=== PATIENT | female | born 1960 | race Caucasian/White ===

== ENCOUNTER 2022-03-02 07:25 | Emergency (ER) | payer SELFPAY ==
[2022-03-02] VITALS (9 sets, daily range): BP systolic 149–217; BP diastolic 79–114; PULSE 65–84; RESP 12–21; TEMP 36.8; O2SAT 97–99; BMI 52.7
--- NOTE | 2022-03-02 07:35 | EKG12_ITS ---
Test Reason : CHEST HEAVINESS Blood Pressure : / mmHG Vent. Rate : 082 BPM Atrial Rate : 082 BPM P-R Int : 206 ms QRS Dur : 094 ms QT Int : 384 ms P-R-T Axes : 029 -28 064 degrees QTc Int : 448 ms Normal sinus rhythm Normal ECG Confirmed by SUKHJINDER HAQ, JENNIFER ([id number]), editor house organ SANDHYA ROSALES ([id number]) on 03/06/2022 10:40:29 AM Referred By: EMMA Confirmed By:JENNIFER SLAUGHTER MD
--- NOTE | 2022-03-02 07:39 | ED.VIS.CHEST ---
HPI History of Present Illness Chief Complaint: Chest Pain Informant: patient Onset/Context/Timing Onset: Days Activity at onset: gradual Timing: Waxes and wanes Quality: Positive for Heaviness Location: Substernal Current Severity: Mild Maximum Severity: Mild Narrative Narrative: Patient presents secondary to chest heaviness. She states the past 3 days she has had a heavy sensation across her chest. This morning was slightly worse. She has noted some mild nausea and had diarrhea yesterday. No fever or chills. No vomiting or cough. She does have a strong family history of heart disease. She does note that she has not been to the doctor in quite some time. She does not take any medications on a regular basis. [facility] Medical History (Updated 03/02/22 @ 12:[address] Bhavya Patterson MD) Hiatal hernia Home Medications amlodipine 5 mg tablet 5 mg PO DAILY #30 tabs 03/02/22 [Rx Last Taken Unknown] Allergy/AdvReac Type Severity Reaction Status Date / Time Penicillins [PCN] AdvReac Chest Verified 03/02/22 07:26 tightness Surgical History Hx of cholecystectomy Social History Smoking Status: Never smoker ROS ROS ED Constitutional Constitutional ED: Denies chills or fever(s) Eyes Eyes: Denies change in vision or discharge from eye(s) ENT ENT ED: Denies discharge from eye(s), rhinorrhea or sore throat Cardiovascular Cardiovascular: Reports chest pain; Denies palpitations Respiratory/Chest Respiratory/Chest: Denies cough or dyspnea Gastrointestinal Gastrointestinal: Reports diarrhea and nausea; Denies abdominal pain or vomiting Genitourinary Genitourinary ED: Denies difficulty urinating or dysuria Musculoskeletal Musculoskeletal: Denies back pain or extremity pain Integumentary Denies Abrasions or rash Neurologic Neurologic: Denies headache(s) or weakness Psychiatric Psychiatric: Denies anxiety or depression Allergic/Immunologic Allergic/Immunologic ED: Denies lip swelling or urticaria EXAM Physical Exam Const Vital Signs: 03/02/22 07:26 03/02/22 07:33 03/02/22 07:42 Temperature 98.2 F Temperature Source Temporal Pulse Rate 84 Respiratory Rate 14 Respiratory Effort Normal Blood Pressure 217/114 H Blood Pressure Mean 148 Pulse Ox 98 99 Oxygen Delivery Method Room Air Room Air 03/02/22 08:00 03/02/22 09:11 03/02/22 09:48 Temperature Temperature Source Pulse Rate 81 70 69 Respiratory Rate 18 21 H 12 Respiratory Effort Blood Pressure 202/101 H 183/88 H 209/96 H Blood Pressure Mean 134 119 133 Pulse Ox 98 98 97 Oxygen Delivery Method Room Air Room Air 03/02/22 10:12 03/02/22 10:50 03/02/22 12:00 Temperature Temperature Source Pulse Rate 65 70 69 Respiratory Rate 12 12 19 H Respiratory Effort Blood Pressure 208/98 H 171/85 H 157/79 H Blood Pressure Mean 134 113 105 Pulse Ox 99 99 97 Oxygen Delivery Method Room Air Room Air Room Air Positive well nourished and well developed General Appearance ED: well developed HEENT Reports normocephalic and head/scalp atraumatic Eyes PERRL and EOMs intact bilaterally Neck supple Chest Wall inspection of chest normal and palpation of chest normal Resp normal respiratory effort and clear to auscultation bilaterally Cardio regular rate and regular rhythm GI normal to inspection, nondistended, normoactive bowel sounds Palpation: soft Extremity normal to inspection Neuro oriented x3 and no sensory deficits noted Sensorium / Orientation: alert Motor Exam: strength 5/5 throughout Psych mental status grossly normal Skin no rashes or lesions noted Heart Score History: Moderately Suspicious ECG: Normal Age: >45 - <65 years Risk Factors: No Risk Factors Troponin: </= Normal Limit Score: 2 MDM MDM MDM Narrative Medical decision making narrative: Patient placed on monitoring tech. EKG, chest x-ray, lab work obtained. Aspirin ordered. Patient given small dose of labetalol to help with blood pressure. Lab Data Attestation: I reviewed the patient's lab results. Labs: Laboratory Results - last 24 hr 03/02/22 03/02/22 03/02/22 07:45 07:45 10:10 WBC 6.5 RBC 5.35 Hgb 15.2 H Hct 45.5 MCV 85.0 MCH 28.4 MCHC 33.4 RDW Std Deviation 41.1 RDW Coeff of Sha 13.4 Plt Count 238 MPV 9.6 Immature Gran % (Auto) 0.300 Neut % (Auto) 44.0 L Lymph % (Auto) 42.[address] [place] % (Auto) 10.3 H Eos % (Auto) 2.0 Baso % (Auto) 0.5 Absolute Neuts (auto) 2.9 Absolute Lymphs (auto) 2.78 Nucleated RBC % 0 Sodium 143 Potassium 3.6 Chloride 108 H Carbon Dioxide 29.0 Anion Gap 6 BUN 16 Creatinine 0.86 Estim Creat Clear Calc 57.82 Est GFR (MDRD) Af Amer 85 Est GFR (MDRD) Non-Af 70 BUN/Creatinine Ratio 18.6 Glucose 115 H Calcium 9.3 Troponin I High Sens 9 7 Radiography Chest X-Ray - ED: 1 View, Read by ED Physician, Normal, Heart, Lungs and Mediastinum Diagnostic Testing: Clinical Impression(s) from Imaging Studies Chest X-Ray 03/02/22 08:01 IMPRESSION: Borderline cardiomegaly. The lungs are clear. Electronically Signed: Chandler Grove MD at 8:27 EDT , EKG Initial EKG: Attestation: I personally reviewed and interpreted this EKG as follows: Interpretation: Sinus Rhythm (Sinus 82 with no acute ischemia.) Treatment and Re-Evaluation Narrative: On repeat evaluation patient resting comfortably. Test results discussed with her. CBC and chemistry studies unremarkable. Initial troponin is 9. Chest x-ray is unremarkable per my interpretation. EKG reveals no acute ischemia. Patient's blood pressure did transiently come down with labetalol but at this time is elevated back up into the high 180 systolic range. 20 mg of IV labetalol will be given. 2-hour repeat troponin will be drawn. Patient had no significant change in blood pressure with labetalol. She was given a dose of hydralazine. This improved her blood pressure to 166/88. Repeat troponin is negative. I attempted to call Dr. Antonio for follow-up as patient states that was the last physician she saw, however office states that she has not been seen in at least 12 years and is no longer patient there. Patient would like to follow-up with [facility] as that is where her records are. I have attempted to contact at least 2 other physicians and have yet to receive a return call back. I will start the patient on amlodipine and continue to make efforts to reach a primary care physician so patient can have appropriate follow-up. Discharge Plan Triage Chief Complaint: Chest Pain ED Provider: Bhavya Patterson Dx/Rx/DC Orders Clinical Impression: Hypertension, Chest pain Instructions: ED Chest Pain, Uncertain Cause, ED Hypertension New Begin Treatment Prescriptions: New amlodipine 5 mg tablet 5 mg PO DAILY Qty: 30 0RF Primary Care Provider: Care Physician,No Primary Referrals: Nica Antonio MD [Med Staff - Household Assistant] - Luis Shultz MD [Med Staff - Household Assistant] - 1-2 Weeks Disposition Disposition: Home, Self Care
[2022-03-02 07:52] LABS: Absolute Lymphocyte Count 2.78 X10^3/uL (0.83-4.51); Absolute Neutrophil Count 2.9 X10^3/uL (2.0-7.7); Basophil# 0.03 X10^3/uL; Basophil% 0.5 % (0-1); Eosinophil# 0.13 X10^3/uL; Hematocrit 45.5 % (37-47); Hemoglobin 15.2 g/dL (12.0-15.0); Lymphocyte # 2.78 X10^3/ul (0.83-4.51); Lymphocyte % 42.9 % (19-41); Mean Corp Hgb Conc 33.4 g/dL (32-36); Mean Corpuscular Hgb 28.4 pg (27.0-32.0); Mean Platelet Vol. 9.6 fl (6.2-12.0); Monocyte# 0.67 X10^3/uL; Monocyte% 10.3 % (0-10); NRBC Flagged by Analyzer 0 % (0-5); Neutrophil # 2.85 X10^3/uL (2.7-7.7); Platelet Count 238 K/mm3 (150-450); RBC Distribution Width CV 13.4 % (11.6-14.6); RBC Distribution Width SD 41.1 fl (35.1-43.9); Red Blood Count 5.35 M/mm3 (4.2-5.4); White Blood Count 6.5 K/mm3 (4.4-11.0)
[2022-03-02] MEDS: Labetalol (Prefilled) 20 MG/4 ML 10 MG IV (07:52)
[2022-03-02] MEDS: Aspirin 81 MG TAB.CHEW 324 MG PO (07:52)
--- NOTE | 2022-03-02 08:01 | RAD_ITS ---
STUDY: X-RAY CHEST REASON FOR EXAM: Female, 61 years old. 2 day history of chest pain. TECHNIQUE: Single AP portable view of the chest. COMPARISON: None. FINDINGS: EKG electrodes are seen. Elevation of the right hemidiaphragm. There is no demonstrated pleural abnormality. There is borderline cardiomegaly. Normal mediastinum and minna. Normal visualized pulmonary arteries. Normal visualized aortic arch and descending thoracic aorta. Normal visualized thoracic spine. Normal visualized ribs, clavicles, and shoulders. There is no demonstrated abnormality of the visualized soft tissue structures of the upper abdomen. RAD/Chest 1 View (Portable) IMPRESSION: Borderline cardiomegaly. The lungs are clear. Electronically Signed: Chandler Grove MD at 8:27 EDT ,
[2022-03-02 08:08] LABS: Anion Gap 6 (5-15); BUN 16 mg/dL (7-18); BUN/Creat Ratio 18.6 RATIO (10-20); Calcium,Total 9.3 mg/dL (8.5-10.1); Chloride 108 mmol/L (98-107); Creatinine, Serum 0.86 mg/dL (0.55-1.02); EST Glomerular Filtration Rate 70 mL/min (>60); Est Glom Filt Rate - Afr Amer 85 mL/min (>60); Estimated Creatinine Clearance 57.82 ml/min; Glucose 115 mg/dL (74-106); Potassium 3.6 mmol/L (3.5-5.1); Sodium Level 143 mmol/L (136-145); Troponin-I HS (w/2H Reflex) 9 pg/mL (3.0-54.0)
[2022-03-02] MEDS: Labetalol (Prefilled) 20 MG/4 ML IV (09:07)
[2022-03-02 09:49] LABS: Reflex Troponin-HS? (from REC) Y
[2022-03-02] MEDS: hydrALAZINE 20 MG/ML Vial 10 MG IV (10:09)
[2022-03-02 10:37] LABS: Troponin-I HS 7 pg/mL (3.0-54.0)
== END 2022-03-02 12:56 | disposition home or self-care (01) ==
PROVIDERS: Emergency Provider Emergency Medicine; Visit Provider Emergency Medicine
DX: R07.89 Other chest pain (principal); I10 Essential (primary) hypertension; R19.7 Diarrhea, unspecified; R11.0 Nausea
CPT/HCPCS: 71045; 80048; 84484; 85025; 93005; 96374; 96375; 96376; 99284; A4216

== ENCOUNTER 2023-12-25 22:56 | Emergency (ER) | payer MEDICARE, SELFPAY ==
[2023-12-25 22:57] VITALS: BP 155/124; PULSE 118; RESP 18; TEMP 36.6; O2SAT 97; BMI 57.3
--- NOTE | 2023-12-25 23:55 | EX.ED.DYSGE1 ---
HPI History of Present Illness Chief Complaint: Constipation Informant: patient Narrative Narrative: 63-year-old female has been constipated for the past 4 days, feeling like she needs to have a bowel movement with feeling of stool in her rectum but unable to pass it. She has taken stimulant laxatives a couple of times, she is taken various types of stool softeners but did not start until after all of this occurred in the past 4 days, and then 4 hours ago she took 10 ounces of magnesium citrate and states she is concerned because she still has not had a bowel movement now is having some soreness in her lower abdomen. No nausea or vomiting. Small amount of blood at 1 point when she tried to have a bowel movement in the last 2 days. No melena. Has had this before. States she is not sedentary and does go to work and is relatively active. She states that her diet is probably not the best. Prior cholecystectomy no other abdominal surgeries. None recently. [facility] Medical History (Updated 12/26/23 @ 00:06 by Cleopatra Perez) Diabetes mellitus Hiatal hernia Home Medications ?Medication ?Instructions ?Recorded ?Last Taken ?Type amlodipine 10 mg tablet 10 mg PO DAILY 12/25/23 Unknown History hydrochlorothiazide 12.5 mg capsule 12.5 mg PO DAILY 12/25/23 Unknown History metformin 500 mg tablet,extended 1,000 mg PO DAILY 12/25/23 Unknown History release 24 hr Allergy/AdvReac Type Severity Reaction Status Date / Time Penicillins (PCN) AdvReac Chest Verified 12/25/23 22:58 tightness Surgical History Hx of cholecystectomy Social History Smoking Status: Never smoker ROS ROS ED Constitutional Constitutional ED: Denies chills or fever(s) Eyes Eyes: Denies change in vision or diplopia ENT ENT ED: Denies rhinorrhea or sore throat Cardiovascular Cardiovascular: Denies chest pain or palpitations Respiratory/Chest Respiratory/Chest: Denies cough or dyspnea Gastrointestinal Gastrointestinal: Reports as per HPI, constipation and hematochezia; Denies abdominal pain, diarrhea, nausea or vomiting Genitourinary Genitourinary ED: Denies dysuria or hematuria Musculoskeletal Musculoskeletal: Denies back pain or neck pain Integumentary Denies abscess or rash Neurologic Neurologic: Denies headache(s), paresthesias or weakness Psychiatric Psychiatric: Denies suicidal thoughts EXAM Physical Exam Const Vital Signs: 12/25/23 22:57 Temperature 98 F Temperature Source Temporal Pulse Rate 118 H Respiratory Rate 18 Blood Pressure 155/124 H Blood Pressure Mean 134 Pulse Ox 97 Oxygen Delivery Method Room Air Positive well nourished, well developed and obese General Appearance ED: well developed and NAD Nutritional Appearance: obese HEENT Reports moist mucous membranes normocephalic and atraumatic Eyes PERRL and EOMs intact bilaterally Neck full ROM and supple Resp normal respiratory effort and clear to auscultation bilaterally Cardio regular rate, regular rhythm and no murmurs GI non-tender and non-distended GI Narrative: On rectal exam, there is no tenderness, there is palpable hard stool in the rectal vault. No blood or melena, light brown stool present. No palpable or actively bleeding hemorrhoids. Auscultation: normoactive bowel sounds Palpation: soft Back/Spine no CVA tenderness General Back: other FROM Extremity normal to inspection General Extremety ED: Negative for edema, pulses abnormal or tenderness General Extremity: Negative for edema or pulses abnormal Neuro oriented x3, CN's II-XII intact bilaterally and no sensory deficits noted Sensorium / Orientation: awake and alert Motor Exam: strength 5/5 throughout Skin no rashes or lesions noted and no wounds MDM MDM MDM Narrative Medical decision making narrative: After sweeping the rectal vault manually, we allowed the patient to try to go but she was unable to have a bowel movement and was okay getting a soapsuds enema. Eventually this produced a massive hard bowel movement and she felt 100% better. She was counseled on the fact that magnesium citrate may take longer to work and that stool softeners will not likely cure obstipation after it has occurred but they are recommended after she goes in order to prevent this in the future. Discharge Plan Triage Chief Complaint: Constipation ED Provider: Juve Puentes Dx/Rx/DC Orders Clinical Impression: Constipation Instructions: ED Constipation (Adult), ED Fecal Impaction, Treated Prescriptions: No Action amlodipine 10 mg tablet 10 mg PO DAILY hydrochlorothiazide 12.5 mg capsule 12.5 mg PO DAILY metformin 500 mg tablet extended release 24 hr 1,000 mg PO DAILY Patient Comments: Pt. is only taking a total of 1000mg/day; prescription is bid. Primary Care Provider: Nicole Worley NP Referrals: Nicole Worley NP, [employer] [Primary Care Provider] - 1 Week if not improving Print Language: Polish Disposition Disposition: Home, Self Care
[2023-12-26 00:56] VITALS: PULSE 102
[2023-12-26 01:06] VITALS: BP 138/97; PULSE 106; RESP 18; TEMP 36.9; O2SAT 95
== END 2023-12-26 01:17 | disposition home or self-care (01) ==
PROVIDERS: Emergency Provider Emergency Medicine; PCP Nurse Practitioner; Visit Provider Emergency Medicine
DX: K59.00 Constipation, unspecified (principal); E11.9 Type 2 diabetes mellitus without complications; Z90.49 Acquired absence of other specified parts of digestive tract; Z79.84 Long term (current) use of oral hypoglycemic drugs
CPT/HCPCS: 99284

== ENCOUNTER → 2024-01-03 | Outpatient (CLI) | payer MEDICARE, SELFPAY | END | disposition home or self-care (01) | LOC: SL 12:18 | PROVIDERS: PCP Nurse Practitioner; Referring Provider Internal Medicine Critical Care Medicine; Visit Provider Internal Medicine Critical Care Medicine | DX: G47.10 Hypersomnia, unspecified (principal) | CPT/HCPCS: 95806 ==

== ENCOUNTER → 2024-02-14 | Outpatient (CLI) | payer MEDICARE, SELFPAY | END | disposition home or self-care (01) | LOC: SL 20:04 | PROVIDERS: PCP Nurse Practitioner; Referring Provider Internal Medicine Critical Care Medicine; Visit Provider Internal Medicine Critical Care Medicine | DX: G47.10 Hypersomnia, unspecified (principal) | CPT/HCPCS: 95810 ==

== ENCOUNTER → 2024-04-09 | Outpatient (CLI) | payer MEDICARE, SELFPAY | END | disposition home or self-care (01) | LOC: SL 19:52 | PROVIDERS: PCP Nurse Practitioner; Referring Provider Internal Medicine Critical Care Medicine; Visit Provider Internal Medicine Critical Care Medicine | DX: G47.33 Obstructive sleep apnea (adult) (pediatric) (principal) | CPT/HCPCS: 95811 ==

== ENCOUNTER → 2024-06-10 | Outpatient (CLI) | payer MEDICARE, SELFPAY | END | disposition home or self-care (01) | LOC: SL 13:29 | PROVIDERS: PCP Nurse Practitioner; Referring Provider Internal Medicine Critical Care Medicine; Visit Provider Internal Medicine Critical Care Medicine | DX: Z46.89 Encounter for fitting and adjustment of other specified devices (principal) ==